=== PATIENT | male | born 1980 | race Caucasian/White ===

== ENCOUNTER 2016-02-25 23:05 | Emergency (ER) | payer OTHER ==
[2016-02-25 23:13] VITALS: BP 152/96; PULSE 102; TEMP 98.4; BMI 31.6
--- NOTE | 2016-02-26 00:43 | PDOC ---
History of Present Illness - General Chief Complaint: Chest Pain Stated Complaint: CHEST PAIN Time Seen by Provider: 02/25/16 23:56 Past History - Past Medical History Allergies/Adverse Reactions: Allergies Allergy/AdvReac Type Severity Reaction Status Date / Time No Known Allergies Allergy Verified 02/25/16 23:08 Home Medications: Ambulatory Orders NK [No Known Home Medication] 02/25/16 - Psycho/Social/Smoking Cessation Hx Suicidal Ideation: No Smoking History: Current some day smoker Have you smoked in the past 12 months: Yes If you are a former smoker, when did you quit?: [employer] Information on smoking cessation initiated: No *Physical Exam - Vital Signs Last Vital Signs Temp Pulse Resp BP Pulse Ox 98.4 F 102 H 26 H 152/96 98 02/25/16 23:09 02/25/16 23:09 02/25/16 23:09 02/25/16 23:09 02/25/16 23:09 *DC/Admit/Observation/Transfer Diagnosis at time of Disposition: lbme - Discharge Dispostion Disposition: HOME - Referrals Referrals: Joce Wang MD [Primary Care Provider] -
--- NOTE | 2016-02-26 10:57 | EKG ---
Test Reason : Blood Pressure : / mmHG Vent. Rate : 105 BPM Atrial Rate : 105 BPM P-R Int : 148 ms QRS Dur : 094 ms QT Int : 348 ms P-R-T Axes : 041 046 025 degrees QTc Int : 459 ms SINUS TACHYCARDIA POSSIBLE LEFT ATRIAL ENLARGEMENT INCOMPLETE RBBB NONSPECIFIC T WAVE ABNORMALITY Confirmed by PATSY GARCIA MD ([id number]) on 02/26/2016 10:57:01 AM Referred By: Confirmed By:PATSY GARCIA MD
== END 2016-02-26 00:46 | disposition home or self-care (01) ==
LOC: JER 23:05
DX: R07.9 Chest pain, unspecified (principal); F17.210 Nicotine dependence, cigarettes, uncomplicated
CPT/HCPCS: 93005; 93010; 99282-25